=== PATIENT | male | born 1950 | race Caucasian/White ===

== ENCOUNTER 2019-06-12 18:03 | Emergency (ER) | payer OTHER ==
[~2019-06-12] VITALS: Ht 182.9 cm; Wt 93.0 kg
[2019-06-12] MEDS ORDERED: Augmentin 875-1 EACH PO (19:18)
[2019-06-12] MEDS ORDERED: Norco 5-325 Ta1 EACH PO (19:18)
== END 2019-06-12 19:25 | disposition home or self-care (01) ==
LOC: ER 18:03
DX: S61.452A Open bite of left hand, initial encounter (principal); S51.852A Open bite of left forearm, initial encounter; S61.512A Laceration without foreign body of left wrist, initial encounter; W54.0XXA Bitten by dog, initial encounter
CPT/HCPCS: 12004; 96372-59; 99283-25; J3010

== ENCOUNTER 2021-01-26 08:40 | Day surgery (SDC) | payer OTHER ==
[~2021-01-26] VITALS: Ht 180.3 cm; Wt 91.0 kg
[~2021-01-26 08:40] MED LIST: Augmentin 875-1 EACH PO; Norco 5-325 Ta1 EACH PO; OXYC5 PO
[2021-01-26] MEDS ORDERED: TADA10TA (09:22)
[2021-01-26] MEDS ORDERED: MELO7.5 (09:22)
[2021-01-26] MEDS ORDERED: Fluocinonide15 GM TP (09:24)
== END 2021-01-26 11:24 | disposition home or self-care (01) ==
LOC: ORSCSDS 08:40
PROVIDERS: Orthopaedic Surgery
PROC: 0SBD4ZZ Excision of Left Knee Joint, Percutaneous Endoscopic Approach (ICD-10-PCS; principal; 2021-01-26 10:00)
DX: M23.212 Derangement of anterior horn of medial meniscus due to old tear or injury, left knee (principal); M17.12 Unilateral primary osteoarthritis, left knee; M65.9 Synovitis and tenosynovitis, unspecified; I48.91 Unspecified atrial fibrillation; J44.9 Chronic obstructive pulmonary disease, unspecified; Z87.891 Personal history of nicotine dependence; Z79.899 Other long term (current) drug therapy
CPT/HCPCS: J0171; J0690; J1100; J1885; J2370; J2405; J2704; J2795; J3010; J7120

== ENCOUNTER 2021-02-14 07:36 | Day surgery (SDC) | payer OTHER ==
[~2021-02-14] VITALS: Ht 180.3 cm; Wt 89.7 kg
[~2021-02-14 07:36] MED LIST changes: +Fluocinonide15 GM TP; +MELO7.5; +TADA10TA
--- NOTE | 2021-02-14 08:07 | NUR ---
02/14/21 0807 MIRYAM COUCH PT BOWEL PREP SUTABS
--- NOTE | 2021-02-14 09:36 | NUR ---
02/14/21 09[address] PADILLA IN ROOM, NOTIFYING HER OF HR [id number] BP 104/69, NO NEW ORDERS.
== END 2021-02-14 10:25 | disposition home or self-care (01) ==
LOC: ORSCSDS 07:36
PROVIDERS: Student in an Organized Health Care Education/Training Program
PROC: 0DBN8ZX Excision of Sigmoid Colon, Via Natural or Artificial Opening Endoscopic, Diagnostic (ICD-10-PCS; principal; 2021-02-14 09:00)
PROC: 0DBH8ZX Excision of Cecum, Via Natural or Artificial Opening Endoscopic, Diagnostic (ICD-10-PCS; principal; 2021-02-14 09:00)
PROC: 0DBK8ZX Excision of Ascending Colon, Via Natural or Artificial Opening Endoscopic, Diagnostic (ICD-10-PCS; principal; 2021-02-14 09:00)
DX: Z12.11 Encounter for screening for malignant neoplasm of colon (principal); Z80.0 Family history of malignant neoplasm of digestive organs; D12.2 Benign neoplasm of ascending colon; D12.5 Benign neoplasm of sigmoid colon; I78.1 Nevus, non-neoplastic; K64.4 Residual hemorrhoidal skin tags; Z87.891 Personal history of nicotine dependence; I48.91 Unspecified atrial fibrillation; J44.9 Chronic obstructive pulmonary disease, unspecified; Z79.899 Other long term (current) drug therapy
CPT/HCPCS: 88305; 93005; 93010; J2704; J7120

== ENCOUNTER → 2024-05-20 | Outpatient (CLI) | payer OTHER ==
[2024-05-20 09:40] LABS: BASOPHILS ABSOLUTE AUTO 0.04 K/mm3 (0.00-0.23); BASOPHILS PERCENT AUTO 1 % (0-2); EOSINOPHILS ABSOLUTE AUTO 0.09 K/mm3 (0.00-0.68); EOSINOPHILS PERCENT AUTO 2 % (0-6); Hematocrit 45.4 % (37.0-53.0); Hemoglobin 14.9 g/dL (13.5-17.5); IMMATURE GRAN ABSOLUTE AUTO 0.03 K/mm3 (0.00-0.10); IMMATURE GRAN PERCENT AUTO 1 % (0-1); LYMPHOCYTES ABSOLUTE AUTO 1.63 K/mm3 (0.84-5.20); LYMPHOCYTES PERCENT AUTO 31 % (21-46); MONOCYTES ABSOLUTE AUTO 0.99 K/mm3 (0.16-1.47); MONOCYTES PERCENT AUTO 19 % (4-13); Mean Corpuscular HGB Conc 32.8 g/dL (31.5-36.5); Mean Corpuscular Volume 91 fL (80-100); Mean Platelet Volume 9.3 fL (9.1-12.4); NEUTROPHILS ABSOLUTE AUTO 2.51 K/mm3 (1.96-9.15); NEUTROPHILS PERCENT AUTO 47 % (41-73); Platelet Count 248 K/mm3 (150-400); Red Blood Cell Count 4.97 M/mm3 (4.30-5.90); White Blood Cell Count 5.29 K/mm3 (4.00-11.30)
== END ==
LOC: LAB 08:58 → LAB SHORT 08:58
PROVIDERS: Nurse Practitioner
DX: D64.9 Anemia, unspecified (principal)
CPT/HCPCS: 82728; 83540; 83550; 85025

== ENCOUNTER 2024-06-08 10:56 | Day surgery (SDC) | payer OTHER ==
[~2024-06-08] VITALS: Ht 182.9 cm; Wt 87.5 kg
[~2024-06-08 10:56] MED LIST changes: +Dexamethasone Sod Phos 10 MG/ML 1ML VIAL ONE; +FentaNYL Citrate 50 MCG/ML 2 ML Injection ONE; +Lactated Ringer's 1,000 ML IV ONE; +Ondansetron HCl 2 MG / ML 2ML Vial ONE; +propofoL 20 ML IV ONE
[2024-06-08] MEDS ORDERED: CeFAZolin Sodium 2,000 MG VIAL ONE (11:05)
[2024-06-08] MEDS ORDERED: NS 50 ML IV ONE (11:06)
[2024-06-08] MEDS ORDERED: CARTIA XT120 M9 PO (11:48)
[2024-06-08] MEDS ORDERED: ELIQUIS5 M2 PO (11:48)
[2024-06-08] MEDS ORDERED: DILT30 PO (11:48)
[2024-06-08] MEDS ORDERED: Lactated Ringer's 1,000 ML IV ONE (11:53)
[2024-06-08] MEDS ORDERED: Phenylephrine HCl 100 MCG/ML-NS 10MLSYR (1MG/10ML) ONE (12:21)
[2024-06-08] MEDS ORDERED: Bupivacaine 0.5% W/EPI 1:200000 SDV 30ML INJ ONE (13:05)
[2024-06-08 13:31] VITALS: BP 106/69
--- NOTE | 2024-06-08 14:10 | NUR ---
06/08/24 1410 FIONA PRINCE PT AND VERY PLEASANT. BOTH LISTENED TO DC INSTRUCTIONS. ANSWERED QUESTIONS THAT THEY HAD. PT HAS DENTURES AT DISCHARGE
== END 2024-06-08 14:10 | disposition home or self-care (01) ==
LOC: ORSCSDS 10:56
PROVIDERS: Orthopaedic Surgery
PROC: 0SBC4ZZ Excision of Right Knee Joint, Percutaneous Endoscopic Approach (ICD-10-PCS; principal; 2024-06-08 12:30)
DX: M23.200 Derangement of unspecified lateral meniscus due to old tear or injury, right knee (principal); M23.203 Derangement of unspecified medial meniscus due to old tear or injury, right knee; M17.11 Unilateral primary osteoarthritis, right knee; I48.91 Unspecified atrial fibrillation; J44.9 Chronic obstructive pulmonary disease, unspecified; Z87.891 Personal history of nicotine dependence; Z79.899 Other long term (current) drug therapy
CPT/HCPCS: J0690; J1100; J2371; J2405; J2704; J3010; J7120